=== PATIENT | male | born 1955 | race Asian ===

== ENCOUNTER → 2024-03-19 06:27 | Outpatient (REF) | payer BC, SELFPAY ==
[2024-03-19 07:59] LABS: AST (SGOT) 30 U/L (17-59); Albumin 4.6 g/dl (3.5-5.0); Blood Urea Nitrogen 15 mg/dl (9-20); Calcium 9.3 mg/dl (8.4-10.2); Carbon Dioxide 23 mmol/L (22-30); Glucose 131 mg/dl (70-99); Potassium 4.4 mmol/L (3.5-5.1); Total Bilirubin 0.8 mg/dl (0.2-1.3); Total Protein 6.8 g/dl (6.3-8.2); eGFR > 60.00
[2024-03-19 08:10] LABS: ALT (SGPT) 26 U/L (0-50); Alkaline Phosphatase 59 U/L (38-126); Chloride 106 mmol/L (98-107); Sodium 138 mmol/L (135-145)
[2024-03-19 09:24] LABS: Glycohemoglobin (HgbA1c) 6.1 % (4.0-5.6)
== END ==
LOC: REG 06:27
PROVIDERS: ATTENDING PHYSICIAN Family Medicine
DX: E11.69 Type 2 diabetes mellitus with other specified complication (principal)
CPT/HCPCS: 36415; 80053; 83036

== ENCOUNTER → 2024-04-30 12:35 | Outpatient (REF) | payer BC, SELFPAY | LOC: RAD 12:35 | PROVIDERS: ATTENDING PHYSICIAN Family Medicine | DX: R05.3 Chronic cough (principal) | CPT/HCPCS: 70220; 71046 ==

== ENCOUNTER → 2024-09-18 06:22 | Outpatient (REF) | payer BC, SELFPAY ==
[2024-09-18 07:24] LABS: % Basophils 0.9 % (0-2); % Eosinophils 3.3 % (0-6); % Immature Granulocytes 0.5 % (0-0.5); % Lymphocytes 30.1 % (20.5-51.1); % Neutrophils 56.2 % (42.2-75.2); Absolute Basophils 0.1 10^3/uL (0-0.2); Absolute Eosinophils 0.2 10^3/uL (0-0.7); Absolute Lymphocytes 1.7 10^3/uL (1.2-3.4); Absolute Monocytes 0.5 10^3/uL (0.1-0.6); Absolute Neutrophils 3.2 10^3/uL (1.4-6.5); Hematocrit 44.7 % (39.0-52.0); Hemoglobin 15.5 g/dL (13.0-18.0); Mean Corp Hgb Conc. 34.7 g/dL (33.0-37.0); Mean Corpuscular Hgb 30.5 pg (27.0-31.0); Mean Platelet Volume 9.6 fL (7.4-10.4); Nucleated Red Blood Cells % 0 % (-); Platelet Count 225 10^3/uL (130-400); Red Blood Cell Count 5.08 10^6/uL (4.70-6.10); Red Cell Dist. Width 12.6 % (11.5-14.5); White Blood Cell Count 5.7 10^3/uL (4.8-10.8)
[2024-09-18 07:49] LABS: Microalbumin, Random Urine <0.6 mg/dl (0.6-1.7)
[2024-09-18 08:12] LABS: ALT (SGPT) 34 U/L (0-50); AST (SGOT) 29 U/L (17-59); Albumin 4.6 g/dl (3.5-5.0); Alkaline Phosphatase 61 U/L (38-126); Blood Urea Nitrogen 17 mg/dl (9-20); Calcium 9.3 mg/dl (8.4-10.2); Carbon Dioxide 23 mmol/L (22-30); Chloride 104 mmol/L (98-107); Glucose 137 mg/dl (70-99); HDL Cholesterol 39 mg/dl; LDL Cholesterol, Calculated 112 mg/dl; Potassium 4.5 mmol/L (3.5-5.1); Sodium 138 mmol/L (135-145); Total Cholesterol 201 mg/dl (50-199); Total Protein 6.5 g/dl (6.3-8.2); Triglyceride 252 mg/dl (10-149); Very Low Density Lipoprotein 50 mg/dl (0-30); eGFR > 60.00
[2024-09-18 08:29] LABS: PSA, Total - Screen 7.21 ng/ml (0.0-4.0); TSH Reflex To Free T4 1.94 uIU/ml (0.47-4.68)
[2024-09-18 10:05] LABS: Glycohemoglobin (HgbA1c) 6.4 % (4.0-5.6)
== END ==
LOC: REG 06:22
PROVIDERS: ATTENDING PHYSICIAN Family Medicine
DX: I10 Essential (primary) hypertension (principal); E78.00 Pure hypercholesterolemia, unspecified; E11.69 Type 2 diabetes mellitus with other specified complication; R97.20 Elevated prostate specific antigen [PSA]
CPT/HCPCS: 36415; 80053; 80061; 82043; 82570; 83036; 84443; 85025; G0103

== ENCOUNTER → 2025-05-21 06:22 | Outpatient (REF) | payer BC, SELFPAY ==
[2025-05-21 07:43] LABS: Hematocrit 44.7 % (39.0-52.0); Hemoglobin 15.5 g/dL (13.0-18.0); Mean Corp Hgb Conc. 34.7 g/dL (33.0-37.0); Mean Corpuscular Volume 89.0 fL (80.0-94.0); Nucleated Red Blood Cells % 0 % (-); Platelet Count 219 10^3/uL (130-400); Red Cell Dist. Width 12.9 % (11.5-14.5)
[2025-05-21 08:29] LABS: ALT (SGPT) 26 U/L (0-50); AST (SGOT) 24 U/L (17-59); Albumin 4.4 g/dl (3.5-5.0); Alkaline Phosphatase 62 U/L (38-126); Blood Urea Nitrogen 17 mg/dl (9-20); Calcium 8.9 mg/dl (8.4-10.2); Carbon Dioxide 25 mmol/L (22-30); Chloride 109 mmol/L (98-107); Glucose 132 mg/dl (70-99); HDL Cholesterol 33 mg/dl; Potassium 4.4 mmol/L (3.5-5.1); Sodium 140 mmol/L (135-145); Total Protein 6.6 g/dl (6.3-8.2); eGFR > 60.00
[2025-05-21 08:48] LABS: LDL Cholesterol, Calculated 53 mg/dl; Very Low Density Lipoprotein 121 mg/dl (0-30)
[2025-05-21 09:14] LABS: LDL Cholesterol, Direct 89 mg/dl
[2025-05-21 10:37] LABS: Glycohemoglobin (HgbA1c) 6.3 % (4.0-5.6)
== END ==
LOC: REG 06:22
PROVIDERS: ATTENDING PHYSICIAN Family Medicine
DX: E11.69 Type 2 diabetes mellitus with other specified complication (principal); I10 Essential (primary) hypertension
CPT/HCPCS: 36415; 80053; 80061; 83036; 83721; 84443; 85025

== ENCOUNTER → 2025-07-10 07:16 | Outpatient (REF) | payer BC, SELFPAY ==
[2025-07-10 09:27] LABS: ALT (SGPT) 131 U/L (0-50); AST (SGOT) 80 U/L (17-59); Albumin 4.5 g/dl (3.5-5.0); Alkaline Phosphatase 56 U/L (38-126); Blood Urea Nitrogen 24 mg/dl (9-20); Calcium 9.3 mg/dl (8.4-10.2); Carbon Dioxide 26 mmol/L (22-30); Chloride 105 mmol/L (98-107); Glucose 122 mg/dl (70-99); Potassium 4.4 mmol/L (3.5-5.1); Sodium 138 mmol/L (135-145); Total Protein 6.8 g/dl (6.3-8.2); eGFR > 60.00
== END ==
LOC: REG 07:16
PROVIDERS: ATTENDING PHYSICIAN Family Medicine
DX: E11.69 Type 2 diabetes mellitus with other specified complication (principal); K76.89 Other specified diseases of liver
CPT/HCPCS: 36415; 80053

== ENCOUNTER → 2025-08-18 08:08 | Outpatient (REF) | payer BC, SELFPAY ==
[2025-08-18 10:29] LABS: ALT (SGPT) 37 U/L (0-50); AST (SGOT) 30 U/L (17-59); Albumin 4.5 g/dl (3.5-5.0); Alkaline Phosphatase 52 U/L (38-126); Blood Urea Nitrogen 16 mg/dl (9-20); Calcium 9.1 mg/dl (8.4-10.2); Carbon Dioxide 24 mmol/L (22-30); Chloride 107 mmol/L (98-107); Glucose 128 mg/dl (70-99); Potassium 4.2 mmol/L (3.5-5.1); Sodium 139 mmol/L (135-145); Total Protein 6.8 g/dl (6.3-8.2); eGFR > 60.00
== END ==
LOC: REG 08:08
PROVIDERS: ATTENDING PHYSICIAN Family Medicine
DX: K76.89 Other specified diseases of liver (principal)
CPT/HCPCS: 36415; 80053